=== PATIENT | female | born 1990 | race African-American/Black ===

== ENCOUNTER 2018-12-06 07:25 | Inpatient (IN) | payer MEDICAID, OTHER ==
[~2018-12-06] VITALS: Ht 152.4 cm; Wt 103.1 kg
[2018-12-06] MEDS ORDERED: SODIUM CHLORIDE 0.9% 1,000 ML IV ONE (07:52)
[2018-12-06] MEDS ORDERED: SODIUM CHLORIDE 0.9% 1,000 ML IVB ONE (07:52)
[2018-12-06] MEDS ORDERED: KETOROLAC TROMETH 30 MG/ML 1ML VIAL IV ONE (08:00)
[2018-12-06] MEDS ORDERED: ONDANSETRON HCL 4 MG/2 ML VIAL IV ONE ×2 (08:00)
[2018-12-06] MEDS ORDERED: MORPHINE SULF INJ 2 MG/ML SYRINGE 1ML IV ONE ×2 (08:00→11:30)
[2018-12-06 08:15] LABS: Urine Bacteria MANY /hpf (None Seen); Urine Blood 3+ /uL (Negative); Urine Budding Yeast MODERATE /hpf (None Seen); Urine Mucus MANY (None Seen); Urine Specific Gravity 1.012 (1.001-1.035); Urine WBC 1651 /hpf (0 - 5)
[2018-12-06] MEDS ORDERED: cefTRIAXone 1GM/50ML D5W 50 ML IV ONE (08:30)
[2018-12-06 08:36] LABS: Albumin 3.9 g/dL (3.4-5.0); Calcium 9.3 mg/dL (8.5-10.1); Potassium 3.2 mmol/L (3.5-5.1)
[2018-12-06 08:39] LABS: Bilirubin, Total 0.5 mg/dL (0.2-1.0)
[2018-12-06 08:40] LABS: Basophils # (auto) 0.1 uL; Basophils % (auto) 0.8 % (0.0-2.0); Eosinophils # (auto) 0 uL; Eosinophils % (auto) 0.2 % (0.0-7.0); Hematocrit 33.9 % (36.0-46.0); Hemoglobin 10.7 g/dL (12.2-16.2); Lymphocytes # (auto) 1.9 uL; Lymphocytes % (auto) 16.5 % (10.0-50.0); Mean Corpuscular Hemoglobin 21.9 pg (28.0-32.0); Mean Corpuscular Hgb Conc. 31.4 g/dL (32.0-36.0); Mean Corpuscular Volume 69.6 fL (80.0-100.0); Monocytes % (auto) 8.2 % (0.0-12.0); Neutrophils # (auto) 8.7 uL; Neutrophils % (auto) 74.3 % (37.0-80.0); Nucleated Red Blood Cells % 0.1 %; Platelet Count (auto) 393 10^3/uL (140-450); Red Blood Cells 4.88 10^6/uL (4.0-5.20); Red Cell Distribution Width 17.4 % (11.8-14.3); White Blood Cell 11.7 10^3/uL (4.4-10.8)
[2018-12-06] MEDS ORDERED: POTASSIUM CHL 20 Meq TABLET PO ONE (11:15)
[2018-12-06] MEDS ORDERED: ACETAMINOPHEN 500 MG TAB PO PRN (11:15)
[2018-12-06] MEDS: SODIUM CHLORIDE 0.9% 1,000 ML IV SCH ×2 (13:04→20:33)
[2018-12-06] MEDS: MORPHINE SULF INJ 2 MG/ML SYRINGE 1ML IV PRN ×2 (16:40→21:31)
[2018-12-06] MEDS: ONDANSETRON HCL 4 MG/2 ML VIAL IV PRN (16:40)
[2018-12-06] MEDS: TAMSULOSIN HYDROCHLORIDE 0.4 MG CAP PO SCH (18:23)
--- NOTE | 2018-12-06 19:35 | NUR ---
Opening Shift Note Assumed care of patient, awake, alert, and oriented x4. No S/S of distress/SOB, but patient is reporting back and ABD body pain of 10/10. Bed locked and in lowest position and call light is within reach. Instructed on POC and to call for assist PRN, and patient verbalized understanding. Will continue to monitor for changes PRN.
[2018-12-06] MEDS: HYDROcodone-ACET 5/325MG TAB PO PRN (20:31)
[2018-12-06 21:30] VITALS: BP 128/79
[2018-12-06] MEDS: DOCUSATE SOD 100 MG CAP PO SCH (21:37)
[2018-12-07] MEDS: SODIUM CHLORIDE 0.9% 1,000 ML IV SCH ×3 (03:43→19:07)
[2018-12-07] MEDS: ONDANSETRON HCL 4 MG/2 ML VIAL IV PRN ×2 (04:23→08:38)
[2018-12-07] MEDS: MORPHINE SULF INJ 2 MG/ML SYRINGE 1ML IV PRN ×4 (04:35→16:10)
[2018-12-07 05:00] VITALS: BP 112/52
[2018-12-07] MEDS: HYDROcodone-ACET 5/325MG TAB PO PRN ×2 (06:48→13:00)
[2018-12-07] MEDS ORDERED: HYDR-4683 PO (06:52)
[2018-12-07 07:09] LABS: Basophils # (auto) 0.1 uL; Eosinophils # (auto) 0.1 uL; Eosinophils % (auto) 1.2 % (0.0-7.0); Monocytes # (auto) 0.9 uL; Neutrophils # (auto) 4.4 uL
[2018-12-07 07:13] LABS: Basophils % (auto) 0.8 % (0.0-2.0); Hematocrit 30.5 % (36.0-46.0); Hemoglobin 9.4 g/dL (12.2-16.2); Lymphocytes # (auto) 2.5 uL; Lymphocytes % (auto) 31.4 % (10.0-50.0); Mean Corpuscular Hemoglobin 21.8 pg (28.0-32.0); Mean Corpuscular Hgb Conc. 30.8 g/dL (32.0-36.0); Mean Corpuscular Volume 70.8 fL (80.0-100.0); Monocytes % (auto) 11.9 % (0.0-12.0); Neutrophils % (auto) 54.7 % (37.0-80.0); Platelet Count (auto) 295 10^3/uL (140-450); Red Blood Cells 4.31 10^6/uL (4.0-5.20); Red Cell Distribution Width 17.4 % (11.8-14.3)
[2018-12-07 07:27] LABS: Calcium 8.7 mg/dL (8.5-10.1)
[2018-12-07 07:29] LABS: BUN/Creatinine Ratio 15.3
[2018-12-07] MEDS: DOCUSATE SOD 100 MG CAP PO SCH (07:52)
[2018-12-07 09:00] VITALS: BP 111/72
[2018-12-07] MEDS ORDERED: cefTRIAXone 1GM/50ML D5W 50 ML IV SCH (09:00)
[2018-12-07] MEDS ORDERED: PANTOPRAZOLE 40 MG TAB PO SCH (10:00)
[2018-12-07] MEDS ORDERED: POTASSIUM CHLORIDE 20 MEQ, LIDOCAINE 1% (LOCAL ANESTH.) 2 ML in SODIUM CHL 0.9% 100 ML IV ONE ×6 (11:00)
--- NOTE | 2018-12-07 11:07 | NUR ---
i called and spoke to dr welch/ regarding pain management, he gave new order, for morphine, kub, potassium and urology consult, patient verbalized, she is not sexually active, no possibility of , ordere needed prior to kub.
[2018-12-07] MEDS ORDERED: POTASSIUM CHLORIDE 40 MEQ, LIDOCAINE 1% (LOCAL ANESTH.) 4 ML in SODIUM CHL 0.9% 100 ML IV ONE (12:00)
[2018-12-07] MEDS ORDERED: KETOROLAC TROMETH 30 MG/ML 1ML VIAL IV PRN (12:00)
[2018-12-07 13:00] VITALS: BP 140/86
[2018-12-07 17:00] VITALS: BP 117/76
[2018-12-07] MEDS: TAMSULOSIN HYDROCHLORIDE 0.4 MG CAP PO SCH (17:07)
--- NOTE | 2018-12-07 19:40 | NUR ---
IWONA AT NURSES STATION INFORMED THIS RN PATIENT IS GOING HOME MD APARNA WILL PLACE DISCHARGE ORDER.
[2018-12-07] MEDS ORDERED: NITR-52 PO (19:57)
[2018-12-07 20:00] VITALS: BP 139/81
[2018-12-07 20:10] VITALS: BP 139/81
--- NOTE | 2018-12-07 21:30 | NUR ---
Discharge instructions given as ordered. Encourage to follow up with PMD as instructed. All questions and concerns addressed. Patient verbalized understanding. Medication reconciliation form completed and copy given to patient. IV removed with catheter intact, pressure dressing applied. Patient taken to vehicle via independent ambulation with all personal belongings, accompanied by family member. No distress noted at time of departure.
[2018-12-07] MEDS ORDERED: PHENAZOPYRIDINE HCL 100 MG TAB PO SCH (22:00)
[2018-12-08] MEDS ORDERED: FAMOTIDINE (10MG/ML) 2ML VL IV SCH (10:00)
== END 2018-12-07 21:30 | disposition home or self-care (01) | DRG 465 ==
LOC: EDBD 07:25 → ER 07:25 → TELE 11:07 → TELE-EAST 18:30 → EAST 12-07 02:17
PROVIDERS: ADMIT Nurse Practitioner Acute Care; ATTEND Internal Medicine
DX: N20.0 Calculus of kidney (principal); N12 Tubulo-interstitial nephritis, not specified as acute or chronic; Z68.41 Body mass index [BMI] 40.0-44.9, adult; D50.9 Iron deficiency anemia, unspecified; E87.6 Hypokalemia; F17.210 Nicotine dependence, cigarettes, uncomplicated; E66.9 Obesity, unspecified; G47.00 Insomnia, unspecified; G89.4 Chronic pain syndrome; Z82.49 Family history of ischemic heart disease and other diseases of the circulatory system; Z83.3 Family history of diabetes mellitus; Z88.5 Allergy status to narcotic agent; Z88.1 Allergy status to other antibiotic agents; Z88.8 Allergy status to other drugs, medicaments and biological substances; Z90.49 Acquired absence of other specified parts of digestive tract
CPT/HCPCS: 36415; 74018; 74176; 80048; 80053; 81001; 82150; 83690; 84702; 85025; 87086; 94761; 96361; 96365; 96375; G0378; J0696; J1885; J2001; J2405

== ENCOUNTER 2024-07-11 22:50 | Emergency (ER) | payer MEDICAID ==
[~2024-07-11 22:50] MED LIST: HYDR-4833 PO; NITR-52 PO
== END 2024-07-11 23:02 | disposition left against medical advice (07) ==
LOC: ER 22:50
DX: R10.9 Unspecified abdominal pain (principal); Z53.21 Procedure and treatment not carried out due to patient leaving prior to being seen by health care provider